=== PATIENT | female | born 1950 | race African-American/Black ===

== ENCOUNTER 2017-02-14 08:03 | Inpatient (IN) | payer OTHER ==
--- NOTE | 2017-02-14 08:14 | PDOC ---
History of Present Illness - General History Source: Patient, Old Records - History of Present Illness Initial Comments: 02/14/17 08:30 The patient is a 67-year-old woman, accompanied by her son, with a significant past medical history of hypertension, hypercholesterolemia, breast Ca (status post chemotherapy and radiation) who presents to the emergency department via EMS with complaints of abdominal pain for the past 2 days. She reports that her abdominal pain started after eating a "bad piece of ham". She states that she had intermittent left sided abdominal pains that spontaneously resolved on its own on Tuesday, but has remained constant ever since last night. She is unable to describe the nature of the pain but notes that her pain is non-radiating and unbearable. She also reports noting associated symptoms of vomiting and nausea since last night. She took Pepto-Bismol to help relieve her pain, for which she states that it helped temporarily. Her last bowel movement was last night and recalls it had a dark appearance, for which she attributes to her Pepto- Bismol intake. She denies fever, chills, diaphoresis, generalized weakness. She denies chest pain, shortness of breath, cough She denies diarrhea, dysuria, hematuria, urinary frequency and urgency, flank pain, vaginal discharge/vaginal bleeding Allergies: Clarithromycin. Penicillin Past Surgical History: Caesarian Section x1. Social History: Never smoked. No EtOh and recreational drug use. Primary Care Physician: Dr. Gordon Salguero [phone] <Tavia Griffith - Last Filed: 02/14/17 15:53> <Angie Mckeon - Last Filed: 02/14/17 15:58> - General Chief Complaint: Pain, Acute Stated Complaint: ABD PAIN Time Seen by Provider: 02/14/17 08:14 Past History <Tavia Griffith - Last Filed: 02/14/17 15:53> - Past Medical History Cancer: Yes (breast) - Psycho/Social/Smoking Cessation Hx Anxiety: No Suicidal Ideation: No Smoking History: Never smoked Number of Cigarettes Smoked Daily: 0 <Angie Mckeon - Last Filed: 02/14/17 15:58> - Past Medical History Allergies/Adverse Reactions: Allergies Allergy/AdvReac Type Severity Reaction Status Date / Time clarithromycin [From Biaxin] Allergy Verified 07/28/14 15:07 Penicillins Allergy Verified 07/28/14 15:07 Home Medications: Ambulatory Orders Diazepam [Valium -] 5 mg PO BID #14 tablet 07/28/14 Naproxen [Naprosyn -] 500 mg PO BID #14 tablet 07/28/14 Atorvastatin Ca [Lipitor] 10 mg PO HS 02/14/17 Hydrochlorothiazide 25 mg PO ASDIR 02/14/17 Metoprolol Succinate [Toprol Xl -] 25 mg PO DAILY 02/14/17 Review of Systems - Review of Systems Able to Perform ROS?: Yes Comments:: 02/14/17 08:31 GENERAL/CONSTITUTIONAL: No fever or chills. No weakness. HEAD, EYES, EARS, NOSE AND THROAT: No change in vision. No ear pain or discharge. No sore throat. CARDIOVASCULAR: No chest pain or shortness of breath. RESPIRATORY: No cough, wheezing, or hemoptysis. GASTROINTESTINAL: Yes: Left sided abdominal pain. Nausea. Vomiting. No diarrhea or constipation. GENITOURINARY: No dysuria, frequency, or change in urination. MUSCULOSKELETAL: No joint or muscle swelling or pain. No neck or back pain. SKIN: No rash NEUROLOGIC: No headache, vertigo, loss of consciousness, or change in strength/ sensation. ENDOCRINE: No increased thirst. No abnormal weight change. HEMATOLOGIC/LYMPHATIC: No anemia, easy bleeding, or history of blood clots. ALLERGIC/IMMUNOLOGIC: No hives or skin allergy. <Tavia Griffith - Last Filed: 02/14/17 15:53> *Physical Exam - Vital Signs Last Vital Signs Temp Pulse Resp BP Pulse Ox 98.8 F 62 20 158/85 99 02/14/17 08:19 02/14/17 08:19 02/14/17 08:19 02/14/17 08:19 02/14/17 08:19 - Physical Exam Comments: 02/14/17 08:31 GENERAL: Awake, alert, and fully oriented. Appears uncomfortable. Actively vomiting. HEAD: No signs of trauma EYES: PERRLA, EOMI, sclera anicteric, conjunctiva clear ENT: Auricles normal inspection, hearing grossly normal, nares patent, oropharynx clear without exudates. Moist mucosa NECK: Normal ROM, supple, no lymphadenopathy, JVD, or masses LUNGS: Breath sounds equal, clear to auscultation bilaterally. No wheezes, and no crackles HEART: Regular rate and rhythm, normal S1 and S2, no murmurs, rubs or gallops ABDOMEN: Soft, diffuse left sided abdominal tenderness to palpation. Normoactive bowel sounds. No guarding, no rebound. No masses EXTREMITIES: Normal range of motion, no edema. No clubbing or cyanosis. No cords, erythema, or tenderness NEUROLOGICAL: Cranial nerves II through XII grossly intact. Normal speech <Tavia Griffith - Last Filed: 02/14/17 15:53> ED Treatment Course - LABORATORY CBC & Chemistry Diagram: 02/14/17 08:30 02/14/17 08:30 - RADIOLOGY Radiograph Interpretation: 02/14/17 10:09 EXAM: RAD/CHEST - PA Interpreted by Dr. Adrián Forbes IMPRESSION: Single AP chest x-ray. The cardiac silhouette is not enlarged. Mildly uncoiled thoracic aorta. The lungs are well aerated. No evidence of a pulmonary infiltrates, atelectasis. No pleural effusion or pneumothorax is seen. Normal pulmonary vasculature. Impression. No evidence of active pulmonary disease. EXAM: RAD/ABDOMEN-KUB FLAT PLATE Interpreted by Dr. Adrián Forbes IMPRESSION: Single AP view. Moderate amount of fecal debris noted throughout the colon. Clinical correlate with history of constipation. IVC filter is noted. Intact pedicles in the visualized vertebral bodies. Disc space narrowing at L4-5 L5-S1 with facet joint arthropathy. Soft tissue calcifications projecting over the sacrum. Impression. No evidence of intestinal obstruction. Fecal debris is noted throughout the colon clinically correlate with history of the constipation. <Tavia Griffith - Last Filed: 02/14/17 15:53> - LABORATORY CBC & Chemistry Diagram: 02/14/17 08:30 02/14/17 08:30 <Angie Mckeon - Last Filed: 02/14/17 15:58> Medical Decision Making - Medical Decision Making 02/14/17 15:[address] Valiente. Immediate response. Case was discussed. <Tavia Griffith - Last Filed: 02/14/17 15:53> - Medical Decision Making 02/14/17 13:18 Pt presents to the ED complaining of diffuse abdominal pain, worse on her left side and nausea. Actively vomiting on my initial exam. Abdomen with diffuse L > R tenderness. Differential included colitis, obstruction., less likely perforation or biliary disease. Labs and abdominal CT show no acute findings, but patient is still vomiting despite zofran. Will treat with reglan and reassess. If able to tolerate PO will discharge home. EKG NSR without signs of ischemia. 02/14/17 15:54 Patient is still not tolerating PO and has pain despite large doses of opiates and antinausea medication. Will admit to Dr. Valiente. <Angie Mckeon - Last Filed: 02/14/17 15:58> *DC/Admit/Observation/Transfer - Attestations Scribe Attestion: 02/14/17 08:32 Documentation prepared by Tavia Griffith, acting as medical voucher clerk for Angie Mckeon MD, /DO. <Tavia Griffith - Last Filed: 02/14/17 15:53> - Discharge Dispostion Admit: Yes Decision to Admit order Date/Time: 02/14/17 15:58 <Angie Mckeon - Last Filed: 02/14/17 15:58> Diagnosis at time of Disposition: Nausea and vomiting Qualifiers: Vomiting Intractability: intractable - Discharge Dispostion Condition at time of disposition: Good - Referrals Referrals: Gordon Salguero [Primary Care Provider] -
[2017-02-14] MEDS ORDERED: morphine CARPU-JECT 4 MG/1 ML DISP.SYRIN ONE (08:26)
[2017-02-14] MEDS ORDERED: ONDANSETRON 4 MG/2 ML VIAL IVPUSH ONE (08:37)
[2017-02-14] MEDS ORDERED: HYDROmorphone HCL CARPU-JECT 1 MG/1 ML DISP.SYRIN ONE ×2 (08:46→09:15)
[2017-02-14] MEDS ORDERED: SODIUM CHLORIDE 1,000 ML IV ONE (08:56)
[2017-02-14] MEDS ORDERED: HYDROmorphone HCL CARPU-JECT 1 MG/1 ML DISP.SYRIN IVPUSH ONE ×2 (08:57→09:14)
[2017-02-14 08:58] LABS: BASOPHIL 1.1 % (0-2.0); EOSINOPHIL 2.5 % (0-4.5); MCH 28.8 pg (25.7-33.7); MCHC 33.1 g/dl (32.0-36.0); MEAN CELL VOLUME 87.1 fl (80-96); MEAN PLT VOLUME 8.9 fl (7.5-11.1); NEUTROPHILS 69.1 % (42.8-82.8); PLATELET COUNT 248 K/MM3 (134-434); WHITE BLOOD COUNT 8.2 K/mm3 (4.0-10.0)
[2017-02-14] MEDS ORDERED: CALCIUM GLUCONATE 10% - 1,000 MG/10 ML VIAL ONE (09:14)
[2017-02-14] MEDS ORDERED: DEXTROSE 50%-WATER 50 ML DISP.SYRIN ONE (09:14)
[2017-02-14 09:24] LABS: ALBUMIN 3.7 g/dl (3.4-5.0); ANION GAP 8 (8-16); BILIRUBIN,TOTAL 0.7 mg/dL (0.2-1.0); CALCIUM 9.1 mg/dL (8.5-10.1); CO2 27 mmol/L (21-32); CREATININE 0.9 mg/dL (0.55-1.02); GLUCOSE,RANDOM 126 mg/dL (74-106); SGOT/AST 19 U/L (15-37); SGPT/ALT 27 U/L (12-78); TOT PROT 6.8 g/dl (6.4-8.2)
[2017-02-14 09:28] LABS: ALK PHOS 70 U/L (45-117); TROPONIN I < 0.02 ng/ml (0.00-0.05)
[2017-02-14] MEDS ORDERED: HYDROmorphone HCL CARPU-JECT 2 MG/1 ML DISP.SYRIN IVPUSH ONE (09:57)
[2017-02-14] MEDS ORDERED: HYDROmorphone HCL CARPU-JECT 2 MG/1 ML DISP.SYRIN ONE ×2 (10:02→10:51)
[2017-02-14] MEDS ORDERED: METOCLOPRAMIDE HCL INJECTION 10 MG/2 ML VIAL IVPUSH ONE (12:35)
--- NOTE | 2017-02-14 12:47 | EKG ---
Test Reason : Blood Pressure : / mmHG Vent. Rate : 064 BPM Atrial Rate : 064 BPM P-R Int : 154 ms QRS Dur : 090 ms QT Int : 456 ms P-R-T Axes : 054 039 022 degrees QTc Int : 470 ms NORMAL SINUS RHYTHM NORMAL ECG NO PREVIOUS ECGS AVAILABLE Confirmed by RUI PETERSON MD ([id number]) on 02/14/2017 12:47:14 PM Referred By: Confirmed By:RUI PETERSON MD
[2017-02-14] MEDS ORDERED: METOCLOPRAMIDE HCL INJECTION 10 MG/2 ML VIAL ONE (12:49)
[2017-02-14 14:40] LABS: URINE APPEARANCE CLEAR; URINE BILIRUBIN NEGATIVE (NEGATIVE); URINE BLOOD 1+ (NEGATIVE); URINE COLOR STRAW; URINE GLUCOSE (UA) 2+ (NEGATIVE); URINE KETONE NEGATIVE (NEGATIVE); URINE LEUK ESTERASE NEGATIVE (NEGATIVE); URINE NITRITE NEGATIVE (NEGATIVE); URINE PROTEIN NEGATIVE (NEGATIVE); URINE UROBILINOGEN NORMAL E.U./dl (0.2-1.0)
[2017-02-14 14:41] LABS: URINE RBC 3 /hpf (0-3); URINE WBC NONE SEEN /hpf (3-5)
--- NOTE | 2017-02-14 20:46 | HP ---
Admitting History and Physical - Primary Care Physician PCP: Brandyn Valiente - Admission History of Present Illness: 67-year-old woman, accompanied by her son, with a significant past medical history of hypertension, hypercholesterolemia, breast Ca (status post chemotherapy and radiation) who presents to the emergency department via EMS with complaints of abdominal pain for the past 2 days. She reports that her abdominal pain started after eating a "bad piece of ham". She states that she had intermittent left sided abdominal pains that spontaneously resolved on its own on Tuesday, but has remained constant ever since last night. She is unable to describe the nature of the pain but notes that her pain is non-radiating and unbearable. She also reports noting associated symptoms of vomiting and nausea since last night. She took Pepto-Bismol to help relieve her pain, for which she states that it helped temporarily. Her last bowel movement was last night and recalls it had a dark appearance, for which she attributes to her Pepto- Bismol int - Past Medical History Cardiovascular: Yes: HTN, Hyperlipdemia ...: No - Smoking History Smoking history: Never smoked Aproximately how many cigarettes per day: 0 - Alcohol/Substance Use Hx Alcohol Use: No Home Medications - Allergies Allergies/Adverse Reactions: Allergies Allergy/AdvReac Type Severity Reaction Status Date / Time clarithromycin [From Biaxin] Allergy Verified 07/28/14 15:07 heparin Allergy Verified 02/15/17 13:18 Penicillins Allergy Verified 07/28/14 15:07 - Home Medications Home Medications: Ambulatory Orders Diazepam [Valium -] 5 mg PO BID #14 tablet 07/28/14 Naproxen [Naprosyn -] 500 mg PO BID #14 tablet 07/28/14 Atorvastatin Ca [Lipitor] 10 mg PO HS 02/14/17 Hydrochlorothiazide 25 mg PO ASDIR 02/14/17 Metoprolol Succinate [Toprol Xl -] 25 mg PO DAILY 02/14/17 Physical Examination Vital Signs: Vital Signs Temperature 98.1 F 02/14/17 20:37 Pulse Rate 70 02/14/17 20:37 Respiratory Rate 18 02/14/17 20:37 Blood Pressure 126/94 02/14/17 20:37 O2 Sat by Pulse Oximetry (%) 95 02/14/17 20:37 Constitutional: Yes: No Distress HENT: Yes: Atraumatic Neck: Yes: Supple Cardiovascular: Yes: Regular Rate and Rhythm Respiratory: Yes: CTA Bilaterally Gastrointestinal: Yes: Normal Bowel Sounds Extremities: Yes: WNL Neurological: Yes: Alert, Oriented Problem List - Problems (1) Nausea & vomiting Assessment/Plan: clear liquid doet oserve prn zofran and pain meds mild iv hydration Code(s): R11.2 - NAUSEA WITH VOMITING, UNSPECIFIED Qualifiers: Vomiting Intractability: intractable (2) Abdominal pain Assessment/Plan: prn garcia meds ct scan no acute problem Code(s): R10.9 - UNSPECIFIED ABDOMINAL PAIN (3) Gastroenteritis Assessment/Plan: ate 2 week old steak resolving GE Code(s): K52.9 - NONINFECTIVE GASTROENTERITIS AND COLITIS, UNSPECIFIED Assessment/Plan Laboratory Tests 02/14/17 02/14/17 02/14/17 08:30 08:30 12:45 WBC 8.2 RBC 4.55 Hgb 13.1 Hct 39.6 MCV 87.1 MCHC 33.1 RDW 15.0 Plt Count 248 MPV 8.9 Neutrophils % 69.1 Lymphocytes % 22.0 Monocytes % 5.3 Eosinophils % 2.5 Basophils % 1.1 Sodium 143 Potassium 3.7 Chloride 108 H Carbon Dioxide 27 Anion Gap 8 BUN 16 Creatinine 0.9 Creat Clearance w eGFR > 60 Random Glucose 126 H Calcium 9.1 Total Bilirubin 0.7 AST 19 ALT 27 Alkaline Phosphatase 70 Creatine Kinase 197 H CK-MB (CK-2) 2.323 Troponin I < 0.02 Total Protein 6.8 Albumin 3.7 Lipase 101 Urine Color Straw Urine Appearance Clear Urine pH 5.0 Ur Specific Randle <= 1.005 Urine Protein Negative Urine Glucose (UA) 2+ H Urine Ketones Negative Urine Blood 1+ H Urine Nitrite Negative Urine Bilirubin Negative Urine Urobilinogen Normal Ur Leukocyte Esterase Negative Urine RBC 3 Urine WBC None seen Ur Epithelial Cells Many Active Medications Generic Name Dose Route Start Last Admin Trade Name Freq PRN Reason Stop Dose Admin Docusate Sodium 100 mg 02/15/17 10:00 02/15/17 11:00 Colace - PO Not Given DAILY DIMPLE Hydromorphone HCl 1 mg 02/15/17 10:30 02/15/17 13:12 Dilaudid Injection - IVPB 1 mg Q3H PRN Administration PAIN Sodium Chloride 1,000 mls @ 75 mls/hr 02/14/17 22:15 02/15/17 13:13 Normal Saline - IV 75 mls/hr ASDIR DIMPLE Administration Metoprolol Succinate 25 mg 02/15/17 10:00 02/15/17 11:00 Toprol Xl - PO Not Given DAILY DIMPLE Ondansetron HCl 4 mg 02/14/17 20:54 02/15/17 07:46 Zofran Injection IVPB 4 mg Q4H PRN Administration NAUSEA AND/OR VOMITING
[2017-02-14] MEDS ORDERED: HYDROmorphone HCL CARPU-JECT 1 MG/1 ML DISP.SYRIN IVPB PRN (20:54)
[2017-02-14] MEDS: SODIUM CHLORIDE 1,000 ML IV SCH (22:17)
[2017-02-14] MEDS: ONDANSETRON 4 MG/2 ML VIAL IVPB PRN (22:19)
[2017-02-15 00:20] VITALS: BMI 34.9
[2017-02-15] MEDS ORDERED: SENNOSIDES 8.6MG TABLET (FP) PO PRN (06:59)
[2017-02-15] MEDS ORDERED: DOCUSATE SODIUM 100 MG CAPSULE (FP) PO ONE (06:59)
[2017-02-15] MEDS ORDERED: POLYETHYLENE GLYCOL 3350 119 GM BTL PO ONE (07:00)
--- NOTE | 2017-02-15 07:02 | HOSP ---
Subjective - Review of Symptoms Events since last encounter: called to evaluate patient for abdominal pain, 05/31 . Dilaudid 1mg given ,did not alleviate pain. General: No: Chills, Night Sweats, Fatigue HEENT: No: Head Aches, Visual Changes Cardiovascular: No: Chest Pain, Palpitations Gastrointestinal: Yes: Nausea, Abdominal Pain, Constipation. No: Vomiting, Diarrhea Genitourinary: No: Dysuria, Frequency Musculoskeletal: No: No Symptoms Neurological: No: Weakness, Numbness Physical Examination Vital Signs: Vital Signs Temperature 99.0 F 02/15/17 06:00 Pulse Rate 71 02/15/17 06:00 Respiratory Rate 20 02/15/17 06:00 Blood Pressure 131/56 02/15/17 06:00 O2 Sat by Pulse Oximetry (%) 96 02/15/17 04:51 Constitutional: Yes: No Distress, Calm HENT: Yes: Atraumatic, Normocephalic Neck: Yes: Supple, Trachea Midline Cardiovascular: Yes: Regular Rate and Rhythm, Murmur, S1, S2 Respiratory: Yes: Regular, CTA Bilaterally. No: Cough Gastrointestinal: Yes: Normal Bowel Sounds, Soft, Abdomen, Obese, Tenderness Hospitalist Encounter Assessment: 67 year old female admitted for abdominal pain. #abdominal pain most likely secondary to constipation -abdominal CT negative for acute pathology -stat abdominal xray -miralax x1 -senns -d/c Dilaudid can contribute to abdominal pain Visit type - Emergency Visit Emergency Visit: Yes ED Registration Date: 02/14/17 Care time: The patient presented to the Emergency Department on the above date and was hospitalized for further evaluation of their emergent condition. - New Patient This patient is new to me today: Yes Date on this admission: 02/15/17 - Critical Care Critical Care patient: No
[2017-02-15] MEDS: ONDANSETRON 4 MG/2 ML VIAL IVPB PRN (07:46)
[2017-02-15 08:52] LABS: BASOPHIL 0.4 % (0-2.0); EOSINOPHIL 0.9 % (0-4.5); MCH 28.7 pg (25.7-33.7); MCHC 32.8 g/dl (32.0-36.0); MEAN CELL VOLUME 87.5 fl (80-96); MEAN PLT VOLUME 9.2 fl (7.5-11.1); NEUTROPHILS 81.7 % (42.8-82.8); PLATELET COUNT 225 K/MM3 (134-434); RDW 15.3 % (11.6-15.6); WHITE BLOOD COUNT 9.8 K/mm3 (4.0-10.0)
[2017-02-15 09:19] LABS: ALBUMIN 3.5 g/dl (3.4-5.0); ANION GAP 8 (8-16); CALCIUM 8.9 mg/dL (8.5-10.1); CO2 27 mmol/L (21-32); CREATININE 0.7 mg/dL (0.55-1.02); GLUCOSE,RANDOM 99 mg/dL (74-106); SGOT/AST 21 U/L (15-37); SGPT/ALT 31 U/L (12-78)
[2017-02-15 09:21] LABS: ALK PHOS 61 U/L (45-117); BILIRUBIN,TOTAL 0.6 mg/dL (0.2-1.0); TOT PROT 6.2 g/dl (6.4-8.2)
[2017-02-15] MEDS: DOCUSATE SODIUM 100 MG CAPSULE (FP) PO SCH (11:00)
[2017-02-15] MEDS: METOPROLOL SUCCINATE 25 MG TAB.SR.24H (FP) PO SCH (11:00)
--- NOTE | 2017-02-15 13:11 | CON.GI ---
Consult Consult Specialty:: GI for Dr. Motta Referred by:: Dr. Valiente Reason for Consultation:: Abdominal pain, nausea, vomiting - History of Present Illness Chief Complaint: I had pain and had nausea, vomiting History of Present Illness: 67 female presenting with new onset of lower abdominal bloating, nausea, vomiting and abdominal pain. She states that she was in her usual state of health up until this last past tuesday evening. She remembers eating a ham and cheese sandwich that evening and began experiencing on and off lower abdominal / left sided pain at 11PM that night. The pain became persistent and she took pepto-bismol to "coat her stomach". She was the awoken by the pain Tuesday morning. She took pepto bismol again and began experiencing nausea and vomiting. She went to the ER yesterday morning. Triage vitals were stable. Blood glucose was mildly elevated on exam. CBC was otherwise normal as was CMP. CT scan of the abdomen and pelvis performed with IV contrast only was performed revealing liver cysts, fatty liver and a fibroid uterus. She was given the name of spring up supervisor Dr. Gordon Dai by her PMD for GI follow-up as an outpatient as she believes that she was told that she had "IBS" . Per her nurse she has been asking for dilaudid IV analgesia. She also believes that she had a colonoscopy 10 years ago that was OK. There is no family history of colorectal cancer or other GI malignancy. She currently is wondering if the patient food has come up to the floor as of yet. 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) - Past Surgical History Past Surgical History: Yes: , Mastectomy (right) Additional Surgical History: Tram flap - Alcohol/Substance Use Hx Alcohol Use: Yes (one drink every 2 weeks) History of Substance Use: reports: None - Smoking History Smoking history: Never smoked Aproximately how many cigarettes per day: 0 - Social History Usual Living Arrangement: Other () ADL: Independent Occupation: Customer Support Place of : [facility] History of Recent Travel: No Home Medications - Allergies Allergies/Adverse Reactions: Allergies Allergy/AdvReac Type Severity Reaction Status Date / Time clarithromycin [From Biaxin] Allergy Verified 07/28/14 15:07 heparin Allergy Verified 02/15/17 13:18 Penicillins Allergy Verified 07/28/14 15:07 - Home Medications Home Medications: Ambulatory Orders Diazepam [Valium -] 5 mg PO BID #14 tablet 07/28/14 Naproxen [Naprosyn -] 500 mg PO BID #14 tablet 07/28/14 Atorvastatin Ca [Lipitor] 10 mg PO HS 02/14/17 Hydrochlorothiazide 25 mg PO ASDIR 02/14/17 Metoprolol Succinate [Toprol Xl -] 25 mg PO DAILY 02/14/17 Family Disease History - Family Disease History Family Disease History: Other: Father ( 70's DM, CVA, P.E), Mother ( age 76: Aneurysm), Brother (1 : ? drug complications 1 alive: DM ), Sister ( Alive: DM ), Son (1 son: obesity) Other Family History: No family history of colorectal cancer or other GI malignancy Review of Systems - Review of Systems Constitutional: reports: Loss of Appetite. denies: Diaphoresis, Fever Cardiovascular: denies: Chest Pain Respiratory: denies: SOB Gastrointestinal: reports: Abdominal Pain, Bloating, Nausea, Vomiting. denies: Diarrhea, Dysphagia, Melena, Rectal Bleeding, Vomiting Blood Physical Exam-GI Vital Signs: Vital Signs Temperature 98.3 F 02/15/17 10:00 Pulse Rate 64 02/15/17 10:00 Respiratory Rate 20 02/15/17 10:00 Blood Pressure 140/58 02/15/17 10:00 O2 Sat by Pulse Oximetry (%) 96 02/15/17 04:51 Constitutional: Yes: Calm Eyes: No: Sclera Icterus Cardiovascular: Yes: Regular Rate and Rhythm. No: Murmur Respiratory: Yes: CTA Bilaterally Gastrointestinal Inspection: Yes: Scars (+ long horizontal pelvic surgical scar , + Periumbilical scar). No: Distention ...Auscultate: Yes: Normoactive Bowel Sounds ...Palpate: No: Hepatomegaly, Splenomegaly, Tenderness ...Percussion: No: Tympanitic ...Rectal Exam: Yes: Other (With Service Liaison Representative present. No external lesions, no masses, trace light brown stool in rectal vault, guaiac negative) Edema: No Labs: CBC, BMP 02/15/17 07:20 02/15/17 07:20 Imaging - Results Cat Scan: Report Reviewed (liver cysts, fatty liver, firbroid uterus, no acute pathology otherwise), Image Reviewed Problem List - Problems (1) Nausea & vomiting Assessment/Plan: Currently no further N/V and would like to eat No focal findings on physical exam currently ? resolved Acute gastroenteritis Monitor for now on clear liquids Code(s): R11.2 - NAUSEA WITH VOMITING, UNSPECIFIED Qualifiers: Vomiting Intractability: intractable (2) Abdominal pain Assessment/Plan: Currently cannot reproduce pain on exam, guaiac negative on MARY BETH Advance to clears If pain persists then repeat CT scan with PO contrast to further evaluate bowel , check amylase/lipase If continues to improve will need outpatient follow-up of current hospitalization as well as for colorectal cancer screening purposes. She already has contact information for Dr. Gordon Dai or alternativly can follow-up with Dr. Motta as outpatient as well. Code(s): R10.9 - UNSPECIFIED ABDOMINAL PAIN (3) Constipation Assessment/Plan: Likely precipitated by peptobismol compounded by dilaudid MiraLAX 17g daily Code(s): K59.00 - CONSTIPATION, UNSPECIFIED (4) Uterine fibroid Assessment/Plan: Needs f/u w/ gear shaver set up operator regarding this Code(s): D25.9 - LEIOMYOMA OF UTERUS, UNSPECIFIED
[2017-02-15] MEDS: HYDROmorphone HCL CARPU-JECT 1 MG/1 ML DISP.SYRIN IVPB PRN (13:12)
[2017-02-15] MEDS: SODIUM CHLORIDE 1,000 ML IV SCH ×2 (13:13→22:31)
--- NOTE | 2017-02-15 16:10 | PN ---
Progress Note, Physician - Current Medication List Current Medications: Active Medications Docusate Sodium (Colace -) 100 mg PO DAILY [facility] Last Admin: 02/15/17 11:00 Dose: Not Given Hydromorphone HCl (Dilaudid Injection -) 1 mg IVPB Q3H PRN PRN Reason: PAIN Last Admin: 02/15/17 13:12 Dose: 1 mg Sodium Chloride (Normal Saline -) 1,000 mls @ 75 mls/hr IV ASDIR [facility] Last Admin: 02/15/17 13:13 Dose: 75 mls/hr Metoprolol Succinate (Toprol Xl -) 25 mg PO DAILY [facility] Last Admin: 02/15/17 11:00 Dose: Not Given Ondansetron HCl (Zofran Injection) 4 mg IVPB Q4H PRN PRN Reason: NAUSEA AND/OR VOMITING Last Admin: 02/15/17 07:46 Dose: 4 mg - Objective Vital Signs: Vital Signs Temperature 98.9 F 02/15/17 14:00 Pulse Rate 64 02/15/17 10:00 Respiratory Rate 20 02/15/17 10:00 Blood Pressure 140/58 02/15/17 10:00 O2 Sat by Pulse Oximetry (%) 96 02/15/17 04:51 Constitutional: Yes: No Distress HENT: Yes: Atraumatic Neck: Yes: Supple Cardiovascular: Yes: Regular Rate and Rhythm Respiratory: Yes: CTA Bilaterally Gastrointestinal: Yes: Normal Bowel Sounds Extremities: Yes: WNL Neurological: Yes: Alert, Oriented Labs: CBC, BMP 02/15/17 07:20 02/15/17 07:20 Problem List - Problems (1) Nausea & vomiting Assessment/Plan: advance diet as tolerated prn zofran and pain meds mild iv hydration Code(s): R11.2 - NAUSEA WITH VOMITING, UNSPECIFIED Qualifiers: Vomiting Intractability: intractable (2) Abdominal pain Assessment/Plan: prn garcia meds ct scan no acute problem Code(s): R10.9 - UNSPECIFIED ABDOMINAL PAIN (3) Gastroenteritis Assessment/Plan: ate 2 week old steak resolving GE gi eval Code(s): K52.9 - NONINFECTIVE GASTROENTERITIS AND COLITIS, UNSPECIFIED
[2017-02-16] MEDS: DOCUSATE SODIUM 100 MG CAPSULE (FP) PO SCH (09:58)
[2017-02-16] MEDS: METOPROLOL SUCCINATE 25 MG TAB.SR.24H (FP) PO SCH (09:58)
--- NOTE | 2017-02-16 18:15 | PN ---
Progress Note, Physician History of Present Illness: c/o heaviness and discomfort in belly - Current Medication List Current Medications: Active Medications Docusate Sodium (Colace -) 100 mg PO DAILY [facility] Last Admin: 02/16/17 09:58 Dose: 100 mg Hydromorphone HCl (Dilaudid Injection -) 1 mg IVPB Q3H PRN PRN Reason: PAIN Last Admin: 02/15/17 13:12 Dose: 1 mg Sodium Chloride (Normal Saline -) 1,000 mls @ 75 mls/hr IV ASDIR [facility] Last Admin: 02/15/17 22:31 Dose: Not Given Metoprolol Succinate (Toprol Xl -) 25 mg PO DAILY [facility] Last Admin: 02/16/17 09:58 Dose: 25 mg Ondansetron HCl (Zofran Injection) 4 mg IVPB Q4H PRN PRN Reason: NAUSEA AND/OR VOMITING Last Admin: 02/15/17 07:46 Dose: 4 mg - Objective Vital Signs: Vital Signs Temperature 98.9 F 02/16/17 14:58 Pulse Rate 66 02/16/17 14:58 Respiratory Rate 18 02/16/17 14:58 Blood Pressure 117/64 02/16/17 14:58 O2 Sat by Pulse Oximetry (%) 96 02/16/17 04:00 Constitutional: Yes: No Distress HENT: Yes: Atraumatic Neck: Yes: Supple Cardiovascular: Yes: Regular Rate and Rhythm Respiratory: Yes: CTA Bilaterally Gastrointestinal: Yes: Normal Bowel Sounds Extremities: Yes: WNL Neurological: Yes: Alert, Oriented Labs: CBC, BMP 02/15/17 07:20 02/15/17 07:20 Problem List - Problems (1) Nausea & vomiting Assessment/Plan: resolved advance diet as tolerated prn zofran and pain meds Code(s): R11.2 - NAUSEA WITH VOMITING, UNSPECIFIED Qualifiers: Vomiting Intractability: intractable (2) Abdominal pain Assessment/Plan: prn pain meds ct scan no acute problem some lower abdomen discomfort Code(s): R10.9 - UNSPECIFIED ABDOMINAL PAIN (3) Gastroenteritis Assessment/Plan: resolved Code(s): K52.9 - NONINFECTIVE GASTROENTERITIS AND COLITIS, UNSPECIFIED Assessment/Plan advance diet to regular if tolerating and cleared by gi can be dc
[2017-02-16] MEDS: HYDROmorphone HCL CARPU-JECT 1 MG/1 ML DISP.SYRIN IVPB PRN (21:03)
[2017-02-16] MEDS: ONDANSETRON 4 MG/2 ML VIAL IVPB PRN (21:59)
[2017-02-16] MEDS ORDERED: BISACODYL 10 MG SUPP.RECT RC ONE (23:15)
[2017-02-16] MEDS ORDERED: MAG HYDROX/AL HYDROX/SIMETH 30 ML UNIT-DOSE CUP PO ONE (23:15)
[2017-02-17] MEDS: HYDROmorphone HCL CARPU-JECT 1 MG/1 ML DISP.SYRIN IVPB PRN (02:14)
[2017-02-17] MEDS: SODIUM CHLORIDE 1,000 ML IV SCH (02:14)
--- NOTE | 2017-02-17 09:09 | PN ---
GI Progress Note Subjective: Vomiting occurred last night along with abdominal bloating. She complains primarily of left flank and left abdominal pain that radiates to the back. The pain seems to get worse after she urinates and occurred after eating solids yesterday evening. She denies urinary symptoms. She has had scant bowel movements since being here. She points towrds her pelvis and describes "feeling heaviness for months" - Objective Vital Signs: Vital Signs Temperature 99.6 F 02/17/17 06:00 Pulse Rate 64 02/17/17 06:00 Respiratory Rate 20 02/17/17 06:00 Blood Pressure 131/76 02/17/17 06:00 O2 Sat by Pulse Oximetry (%) 96 02/17/17 04:00 Constitutional: Calm Eyes: No: Sclera Icterus Cardiovascular: Yes: Regular Rate and Rhythm Respiratory: Yes: CTA Bilaterally ...Auscultate: Yes: Normoactive Bowel Sounds ...Palpate: Yes: Tenderness (mild TTP pelvis, LLQ, left abdomen. + TTP along left paravertebrals) Edema: No Neurological: Yes: Alert Labs: CBC, BMP 02/15/17 07:20 02/15/17 07:20 Laboratory Tests 02/16/17 02/16/17 07:35 07:35 Total Amylase 57 Lipase 112 Problem List - Problems (1) Nausea & vomiting Assessment/Plan: Recurred: Minimize opiate analgesia Repeat CT scan as mentioned in previous note with PO contrast to further assess bowel and reassess left kidney given left sided back pain as well. UA was contaminated on admission but did contain blood and RBC's. ? pathology. Repeat UA and will need follow-up per PMD Repeat labs today including CRP Clear liquids Code(s): R11.2 - NAUSEA WITH VOMITING, UNSPECIFIED Qualifiers: Vomiting Intractability: intractable (2) Abdominal pain Assessment/Plan: See above Code(s): R10.9 - UNSPECIFIED ABDOMINAL PAIN (3) Constipation Assessment/Plan: Await CT scan results, then MiraLAX 17g PO BID Code(s): K59.00 - CONSTIPATION, UNSPECIFIED (4) Uterine fibroid Assessment/Plan: ? 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
[2017-02-17 09:49] LABS: BASOPHIL 1.2 % (0-2.0); EOSINOPHIL 2.5 % (0-4.5); MCH 28.6 pg (25.7-33.7); MCHC 32.6 g/dl (32.0-36.0); MEAN CELL VOLUME 87.7 fl (80-96); MEAN PLT VOLUME 9.1 fl (7.5-11.1); NEUTROPHILS 66.5 % (42.8-82.8); PLATELET COUNT 207 K/MM3 (134-434); RDW 15.5 % (11.6-15.6); WHITE BLOOD COUNT 7.1 K/mm3 (4.0-10.0)
[2017-02-17] MEDS: METOPROLOL SUCCINATE 25 MG TAB.SR.24H (FP) PO SCH (10:09)
[2017-02-17] MEDS: DOCUSATE SODIUM 100 MG CAPSULE (FP) PO SCH (10:09)
[2017-02-17 10:13] LABS: ALBUMIN 3.4 g/dl (3.4-5.0); ANION GAP 7 (8-16); CALCIUM 8.6 mg/dL (8.5-10.1); CO2 28 mmol/L (21-32); CREATININE 0.7 mg/dL (0.55-1.02); GLUCOSE,RANDOM 107 mg/dL (74-106); SGPT/ALT 43 U/L (12-78)
[2017-02-17 10:15] LABS: ALK PHOS 61 U/L (45-117); BILIRUBIN,TOTAL 0.4 mg/dL (0.2-1.0); TOT PROT 6.2 g/dl (6.4-8.2)
[2017-02-17 10:17] LABS: SGOT/AST 29 U/L (15-37)
[2017-02-17 10:22] LABS: C-REACTIVE PROTEIN 0.6 MG/DL (0.00-0.3)
[2017-02-17 11:24] LABS: URINE APPEARANCE CLEAR; URINE BILIRUBIN NEGATIVE (NEGATIVE); URINE COLOR LTYELLOW; URINE GLUCOSE (UA) NEGATIVE (NEGATIVE); URINE KETONE NEGATIVE (NEGATIVE); URINE LEUK ESTERASE NEGATIVE (NEGATIVE); URINE NITRITE NEGATIVE (NEGATIVE); URINE PROTEIN NEGATIVE (NEGATIVE); URINE UROBILINOGEN 2.0 E.U/dl E.U./dl (0.2-1.0)
[2017-02-17 11:34] LABS: URINE BLOOD 2+ (NEGATIVE)
[2017-02-17 11:37] LABS: URINE BACTERIA RARE /hpf (NONE SEEN); URINE MUCUS RARE; URINE RBC 7 /hpf (0-3); URINE WBC 1 /hpf (3-5)
--- NOTE | 2017-02-17 17:38 | PN ---
Progress Note, Physician - Current Medication List Current Medications: Active Medications Docusate Sodium (Colace -) 100 mg PO DAILY [facility] Last Admin: 02/17/17 10:09 Dose: 100 mg Hydromorphone HCl (Dilaudid Injection -) 1 mg IVPB Q3H PRN PRN Reason: PAIN Last Admin: 02/17/17 02:14 Dose: 1 mg Sodium Chloride (Normal Saline -) 1,000 mls @ 75 mls/hr IV ASDIR [facility] Last Admin: 02/17/17 02:14 Dose: 75 mls/hr Metoprolol Succinate (Toprol Xl -) 25 mg PO DAILY [facility] Last Admin: 02/17/17 10:09 Dose: 25 mg Ondansetron HCl (Zofran Injection) 4 mg IVPB Q4H PRN PRN Reason: NAUSEA AND/OR VOMITING Last Admin: 02/16/17 21:59 Dose: 4 mg - Objective Vital Signs: Vital Signs Temperature 99.2 F 02/17/17 14:23 Pulse Rate 66 02/17/17 17:12 Respiratory Rate 18 02/17/17 17:12 Blood Pressure 127/84 02/17/17 17:12 O2 Sat by Pulse Oximetry (%) 96 02/17/17 04:00 Constitutional: Yes: No Distress HENT: Yes: Atraumatic Neck: Yes: Supple Cardiovascular: Yes: Regular Rate and Rhythm Respiratory: Yes: CTA Bilaterally Gastrointestinal: Yes: Normal Bowel Sounds Extremities: Yes: WNL Neurological: Yes: Alert, Oriented Problem List - Problems (1) Nausea & vomiting Assessment/Plan: mild soft diet prn zofran and pain meds Code(s): R11.2 - NAUSEA WITH VOMITING, UNSPECIFIED Qualifiers: Vomiting Intractability: intractable (2) Abdominal pain Assessment/Plan: prn pain meds ct scan 3 mm renal stone some lower abdomen discomfort urology consult Code(s): R10.9 - UNSPECIFIED ABDOMINAL PAIN (3) Gastroenteritis Assessment/Plan: resolved Code(s): K52.9 - NONINFECTIVE GASTROENTERITIS AND COLITIS, UNSPECIFIED (4) Nephrolithiasis Assessment/Plan: ivf prn pain meds Code(s): N20.0 - CALCULUS OF KIDNEY
[2017-02-17] MEDS: LEVOFLOXACIN 500 MG IVPB 100 ML IVPB SCH (21:58)
--- NOTE | 2017-02-18 09:33 | PN ---
GI Progress Note Subjective: 3mm left ureteral stone with partiel obstruction and mild hydronephrosis noted on yesterday's repeat CT scan It also revealed an IVC filter. 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 She was on A/C, had IVC filter placed at that time and followed up with a cryolite recovery operator. complains of continued migratory pain on the left side of abdomen and pelvis radiating to her back Had a BM yesterday - Objective Vital Signs: Vital Signs Temperature 98.2 F 02/18/17 05:32 Pulse Rate 64 02/18/17 05:32 Respiratory Rate 20 02/18/17 05:32 Blood Pressure 134/72 02/18/17 05:32 O2 Sat by Pulse Oximetry (%) 96 02/18/17 04:00 Constitutional: Calm Cardiovascular: Yes: Regular Rate and Rhythm Respiratory: Yes: CTA Bilaterally ...Auscultate: Yes: Normoactive Bowel Sounds ...Palpate: No: Tenderness Edema: No Neurological: Yes: Alert, Oriented Labs: CBC, BMP 02/17/17 09:30 02/17/17 09:30 Hepatic Panel Total Bilirubin 0.4 mg/dL (0.2-1.0) D 02/17/17 09:30 AST 29 U/L (15-37) D 02/17/17 09:30 ALT 43 U/L (12-78) D 02/17/17 09:30 Alkaline Phosphatase 61 U/L (45-117) 02/17/17 09:30 Albumin 3.4 g/dl (3.4-5.0) 02/17/17 09:30 - ....Imaging Cat Scan: Report Reviewed, Image Reviewed Problem List - Problems (1) Abdominal pain Assessment/Plan: The left sided flank/pelvis pain likely secondary to the 3mm partially obstructing ureteral stone She has been evaluated by urology Code(s): R10.9 - UNSPECIFIED ABDOMINAL PAIN (2) Nausea & vomiting Assessment/Plan: resolved Code(s): R11.2 - NAUSEA WITH VOMITING, UNSPECIFIED Qualifiers: Vomiting Intractability: intractable (3) Constipation Assessment/Plan: Had BM yesterday MiraLAX 17g daily particularly while receiving opiate analgesia Code(s): K59.00 - CONSTIPATION, UNSPECIFIED
--- NOTE | 2017-02-18 09:35 | CON.GU ---
Consult Consult Specialty:: urology Referred by:: Rocco Reason for Consultation:: 3mm ureteral stone - History of Present Illness Chief Complaint: renal colic History of Present Illness: 67 year old female with left sided renal colic. CT shows a 3mm ureteral stone with hydro. patient is feeling a little better this morning. No evidence of sepsis. This is her first stone but she has a strong family history - History Source History Provided By: Patient - Past Medical History Cardio/Vascular: Yes: HTN, Hyperlipdemia Renal/: Yes: Renal Calculi. No: Renal Inusuff, Cancer, Hematuria ...: No - Past Surgical History Past Surgical History: Yes: , Mastectomy (right) Additional Surgical History: Tram flap - Alcohol/Substance Use Hx Alcohol Use: No History of Substance Use: reports: None - Smoking History Smoking history: Never smoked Aproximately how many cigarettes per day: 0 - Social History Usual Living Arrangement: Other () ADL: Independent Occupation: Customer Support History of Recent Travel: No Home Medications - Allergies Allergies/Adverse Reactions: Allergies Allergy/AdvReac Type Severity Reaction Status Date / Time clarithromycin [From Biaxin] Allergy Verified 07/28/14 15:07 heparin Allergy Verified 02/15/17 13:18 Penicillins Allergy Verified 07/28/14 15:07 - Home Medications Home Medications: Ambulatory Orders Diazepam [Valium -] 5 mg PO BID #14 tablet 07/28/14 Naproxen [Naprosyn -] 500 mg PO BID #14 tablet 07/28/14 Atorvastatin Ca [Lipitor] 10 mg PO HS 02/14/17 Hydrochlorothiazide 25 mg PO ASDIR 02/14/17 Metoprolol Succinate [Toprol Xl -] 25 mg PO DAILY 02/14/17 Family Disease History - Family Disease History Family Disease History: Other: Father ( 70's DM, CVA, P.E), Mother ( age 76: Aneurysm), Brother (1 : ? drug complications 1 alive: DM ), Sister ( Alive: DM ), Son (1 son: obesity) Other Family History: No family history of colorectal cancer or other GI malignancy Review of Systems - Review of Systems Constitutional: denies: Chills, Fever Genitourinary: reports: Flank Pain, Frequency. denies: Burning, Hematuria Physical Exam- Vital Signs: Vital Signs Temperature 98.2 F 06/30/17 05:32 Pulse Rate 64 02/18/17 05:32 Respiratory Rate 20 02/18/17 05:32 Blood Pressure 134/72 02/18/17 05:32 O2 Sat by Pulse Oximetry (%) 96 02/18/17 04:00 Renal/: No: Bladder Distention, CVA Tenderness - Left, CVA Tenderness - Right , Perez Present, Hematuria Imaging - Results Cat Scan: Report Reviewed Assessment/Plan left ureteral calculus. Size and position suggest a high likelihood of passage with medical expulsive therapy. will follow
[2017-02-18] MEDS ORDERED: TAMSULOSIN HCL 0.4 MG CAP.ER.24H (FP) PO STA (09:38)
[2017-02-18] MEDS: LEVOFLOXACIN 500 MG IVPB 100 ML IVPB SCH (09:58)
[2017-02-18] MEDS: POLYETHYLENE GLYCOL 3350 119 GM BTL PO SCH (09:58)
[2017-02-18] MEDS: METOPROLOL SUCCINATE 25 MG TAB.SR.24H (FP) PO SCH (09:59)
[2017-02-18] MEDS: HYDROmorphone HCL CARPU-JECT 1 MG/1 ML DISP.SYRIN IVPB PRN (10:06)
[2017-02-18] MEDS ORDERED: HYDROmorphone HCL CARPU-JECT 1 MG/1 ML DISP.SYRIN IVPB PRN (15:22)
[2017-02-18] MEDS: SODIUM CHLORIDE 1,000 ML IV SCH (15:33)
--- NOTE | 2017-02-18 21:07 | PN ---
Progress Note, Physician History of Present Illness: had pain earlier - Current Medication List Current Medications: Active Medications Hydromorphone HCl (Dilaudid Injection -) 1 mg IVPB Q3H PRN PRN Reason: PAIN Last Admin: 02/18/17 15:30 Dose: 1 mg Sodium Chloride (Normal Saline -) 1,000 mls @ 75 mls/hr IV ASDIR [facility] Last Admin: 02/18/17 15:33 Dose: 75 mls/hr Levofloxacin (Levaquin 500 Mg Premixed Ivpb -) 100 mls @ 100 mls/hr IVPB DAILY [facility] Last Admin: 02/18/17 09:58 Dose: 100 mls/hr Metoprolol Succinate (Toprol Xl -) 25 mg PO DAILY [facility] Last Admin: 02/18/17 09:59 Dose: 25 mg Ondansetron HCl (Zofran Injection) 4 mg IVPB Q4H PRN PRN Reason: NAUSEA AND/OR VOMITING Last Admin: 02/16/17 21:59 Dose: 4 mg Polyethylene Glycol (Miralax (For Daily Use) -) 17 gm PO DAILY [facility] Last Admin: 02/18/17 09:58 Dose: 17 gm Tamsulosin HCl (Flomax -) 0.4 mg PO DAILY@0830 [facility] - Objective Vital Signs: Vital Signs Temperature 98.8 F 02/18/17 18:06 Pulse Rate 58 L 02/18/17 18:06 Respiratory Rate 20 02/18/17 18:06 Blood Pressure 140/108 02/18/17 18:06 O2 Sat by Pulse Oximetry (%) 94 L 02/18/17 20:51 Constitutional: Yes: No Distress HENT: Yes: Atraumatic Neck: Yes: Supple Cardiovascular: Yes: Regular Rate and Rhythm Respiratory: Yes: CTA Bilaterally Gastrointestinal: Yes: Normal Bowel Sounds Extremities: Yes: WNL Neurological: Yes: Alert, Oriented Problem List - Problems (1) Nausea & vomiting Assessment/Plan: mild soft diet prn zofran and pain meds Code(s): R11.2 - NAUSEA WITH VOMITING, UNSPECIFIED Qualifiers: Vomiting Intractability: intractable (2) Abdominal pain Assessment/Plan: prn pain meds ct scan 3 mm ureteral stone some lower abdomen discomfort urology consult...done Code(s): R10.9 - UNSPECIFIED ABDOMINAL PAIN (3) Gastroenteritis Assessment/Plan: resolved Code(s): K52.9 - NONINFECTIVE GASTROENTERITIS AND COLITIS, UNSPECIFIED (4) Nephrolithiasis Assessment/Plan: ivf prn pain meds Code(s): N20.0 - CALCULUS OF KIDNEY
[2017-02-19] MEDS: SODIUM CHLORIDE 1,000 ML IV SCH (04:36)
[2017-02-19] MEDS: TAMSULOSIN HCL 0.4 MG CAP.ER.24H (FP) PO SCH (08:05)
[2017-02-19] MEDS: METOPROLOL SUCCINATE 25 MG TAB.SR.24H (FP) PO SCH (10:21)
[2017-02-19] MEDS: LEVOFLOXACIN 500 MG IVPB 100 ML IVPB SCH (10:21)
[2017-02-19] MEDS: POLYETHYLENE GLYCOL 3350 119 GM BTL PO SCH (10:22)
[2017-02-19] MEDS ORDERED: MAG HYDROX/AL HYDROX/SIMETH 30 ML UNIT-DOSE CUP PO PRN (17:15)
--- NOTE | 2017-02-19 20:17 | PN ---
Progress Note, Physician History of Present Illness: NO PAIN FEELS BLOATED - Current Medication List Current Medications: Active Medications Al Hydroxide/Mg Hydroxide (Mylanta Oral Suspension -) 30 ml PO Q6H PRN PRN Reason: INDIGESTION Last Admin: 02/19/17 17:25 Dose: 30 ml Hydromorphone HCl (Dilaudid Injection -) 1 mg IVPB Q3H PRN PRN Reason: PAIN Last Admin: 02/18/17 15:30 Dose: 1 mg Sodium Chloride (Normal Saline -) 1,000 mls @ 75 mls/hr IV ASDIR [facility] Last Admin: 02/19/17 04:36 Dose: 75 mls/hr Levofloxacin (Levaquin 500 Mg Premixed Ivpb -) 100 mls @ 100 mls/hr IVPB DAILY [facility] Last Admin: 02/19/17 10:21 Dose: 100 mls/hr Metoprolol Succinate (Toprol Xl -) 25 mg PO DAILY [facility] Last Admin: 02/19/17 10:21 Dose: 25 mg Ondansetron HCl (Zofran Injection) 4 mg IVPB Q4H PRN PRN Reason: NAUSEA AND/OR VOMITING Last Admin: 02/16/17 21:59 Dose: 4 mg Polyethylene Glycol (Miralax (For Daily Use) -) 17 gm PO DAILY [facility] Last Admin: 02/19/17 10:22 Dose: 17 gm Tamsulosin HCl (Flomax -) 0.4 mg PO DAILY@0830 [facility] Last Admin: 02/19/17 08:05 Dose: 0.4 mg - Objective Vital Signs: Vital Signs Temperature 98.1 F 02/19/17 15:50 Pulse Rate 68 02/19/17 15:50 Respiratory Rate 20 02/19/17 15:50 Blood Pressure 127/68 02/19/17 15:50 O2 Sat by Pulse Oximetry (%) 94 L 02/19/17 09:00 Constitutional: Yes: No Distress HENT: Yes: Atraumatic Neck: Yes: Supple Cardiovascular: Yes: Regular Rate and Rhythm Respiratory: Yes: CTA Bilaterally Gastrointestinal: Yes: Normal Bowel Sounds Extremities: Yes: WNL Neurological: Yes: Alert, Oriented Problem List - Problems (1) Nausea & vomiting Assessment/Plan: RESOLVED soft diet Code(s): R11.2 - NAUSEA WITH VOMITING, UNSPECIFIED Qualifiers: Vomiting Intractability: intractable (2) Abdominal pain Assessment/Plan: RESOLVED TOLERATING DIET Code(s): R10.9 - UNSPECIFIED ABDOMINAL PAIN (3) Gastroenteritis Assessment/Plan: resolved Code(s): K52.9 - NONINFECTIVE GASTROENTERITIS AND COLITIS, UNSPECIFIED (4) Nephrolithiasis Assessment/Plan: ivf prn pain meds PO FLOMAX Code(s): N20.0 - CALCULUS OF KIDNEY
[2017-02-20] MEDS: TAMSULOSIN HCL 0.4 MG CAP.ER.24H (FP) PO SCH (09:10)
[2017-02-20] MEDS: METOPROLOL SUCCINATE 25 MG TAB.SR.24H (FP) PO SCH (09:10)
[2017-02-20] MEDS: LEVOFLOXACIN 500 MG IVPB 100 ML IVPB SCH (09:10)
[2017-02-20] MEDS: POLYETHYLENE GLYCOL 3350 119 GM BTL PO SCH (09:12)
--- NOTE | 2017-02-20 21:05 | PN ---
Progress Note, Physician History of Present Illness: NO PAIN - Current Medication List Current Medications: Active Medications Al Hydroxide/Mg Hydroxide (Mylanta Oral Suspension -) 30 ml PO Q6H PRN PRN Reason: INDIGESTION Last Admin: 02/19/17 17:25 Dose: 30 ml Hydromorphone HCl (Dilaudid Injection -) 1 mg IVPB Q3H PRN PRN Reason: PAIN Last Admin: 02/18/17 15:30 Dose: 1 mg Sodium Chloride (Normal Saline -) 1,000 mls @ 75 mls/hr IV ASDIR [facility] Last Admin: 02/19/17 04:36 Dose: 75 mls/hr Metoprolol Succinate (Toprol Xl -) 25 mg PO DAILY [facility] Last Admin: 02/20/17 09:10 Dose: 25 mg Ondansetron HCl (Zofran Injection) 4 mg IVPB Q4H PRN PRN Reason: NAUSEA AND/OR VOMITING Last Admin: 02/16/17 21:59 Dose: 4 mg Polyethylene Glycol (Miralax (For Daily Use) -) 17 gm PO DAILY [facility] Last Admin: 02/20/17 09:12 Dose: Not Given Tamsulosin HCl (Flomax -) 0.4 mg PO DAILY@0830 [facility] Last Admin: 02/20/17 09:10 Dose: 0.4 mg - Objective Vital Signs: Vital Signs Temperature 98.4 F 02/20/17 16:21 Pulse Rate 70 02/20/17 16:21 Respiratory Rate 18 02/20/17 16:21 Blood Pressure 133/87 02/20/17 16:21 O2 Sat by Pulse Oximetry (%) 95 02/20/17 09:00 Constitutional: Yes: No Distress HENT: Yes: Atraumatic Neck: Yes: Supple Cardiovascular: Yes: Regular Rate and Rhythm Respiratory: Yes: CTA Bilaterally Gastrointestinal: Yes: Normal Bowel Sounds Extremities: Yes: WNL Neurological: Yes: Alert, Oriented Problem List - Problems (1) Nausea & vomiting Assessment/Plan: RESOLVED Code(s): R11.2 - NAUSEA WITH VOMITING, UNSPECIFIED Qualifiers: Vomiting Intractability: intractable (2) Abdominal pain Assessment/Plan: RESOLVED TOLERATING DIET Code(s): R10.9 - UNSPECIFIED ABDOMINAL PAIN (3) Gastroenteritis Assessment/Plan: resolved Code(s): K52.9 - NONINFECTIVE GASTROENTERITIS AND COLITIS, UNSPECIFIED (4) Nephrolithiasis Assessment/Plan: ivf Code(s): N20.0 - CALCULUS OF KIDNEY Assessment/Plan PLAN CLINICALLY STABLE SOMETIMES FEELS BLOATED NO PAIN TOLERATING DIET DC HOME IN AM IF STABLE PLENTY OF PO FLUIDS' FU UROLOGY/PMD IN NEXT FEW DAYS IF PAIN RECURS COME BACK TO ER
[2017-02-21 05:20] VITALS: TEMP 98.2
[2017-02-21 08:50] VITALS: BP 132/68; PULSE 78
[2017-02-21] MEDS: TAMSULOSIN HCL 0.4 MG CAP.ER.24H (FP) PO SCH (09:18)
[2017-02-21] MEDS: METOPROLOL SUCCINATE 25 MG TAB.SR.24H (FP) PO SCH (09:19)
[2017-02-21] MEDS: POLYETHYLENE GLYCOL 3350 119 GM BTL PO SCH (09:19)
--- NOTE | 2017-02-21 15:20 | DS ---
Physical Examination Vital Signs: Vital Signs Temperature 98.2 F 02/21/17 08:49 Pulse Rate 78 02/21/17 08:49 Respiratory Rate 16 02/21/17 09:00 Blood Pressure 132/68 02/21/17 08:49 O2 Sat by Pulse Oximetry (%) 95 02/21/17 09:00 Discharge Summary Reason For Visit: NAUSEA AND VOMITING Current Active Problems Abdominal pain (Acute) Constipation (Acute) Gastroenteritis (Acute) Nausea & vomiting (Acute) Nephrolithiasis (Acute) Uterine fibroid (Acute) - Instructions Diet, Activity, Other Instructions: ENCOURAGE PO FLUIDS IF PAIN COMES BACK AND PT CANNOT TOLERATE COME BACK TO ER SEE YOUR PMD AND UROLOGIST IN NEXT FEW DAYS Referrals: Nii Martinez MD [Staff Physician] - Gordon Salguero [Primary Care Provider] - Jaret Motta MD [Staff Physician] - Disposition: HOME - Home Medications Comprehensive Discharge Medication List: Ambulatory Orders Diazepam [Valium] 5 mg PO BID #14 tablet 07/28/14 Naproxen [Naprosyn -] 500 mg PO BID #14 tablet 07/28/14 Atorvastatin Ca [Lipitor] 10 mg PO HS 02/14/17 Hydrochlorothiazide 25 mg PO ASDIR 02/14/17 Metoprolol Succinate [Toprol XL -] 25 mg PO DAILY 02/14/17 Tamsulosin HCl [Flomax -] 0.4 mg PO DAILY@0830 #14 tab 02/18/17 [place] home
== END 2017-02-21 10:51 | disposition home or self-care (01) | DRG 694 ==
LOC: JER 08:03 → JERBED 15:58 → J6S 21:33 → OBSVTOIN 02-17 12:58 → J6S 02-18 11:40
PROVIDERS: ADMIT Internal Medicine; ATTEND Internal Medicine
DX: N13.2 Hydronephrosis with renal and ureteral calculous obstruction (principal); K52.9 Noninfective gastroenteritis and colitis, unspecified; D25.9 Leiomyoma of uterus, unspecified; I10 Essential (primary) hypertension; K59.00 Constipation, unspecified; Z85.3 Personal history of malignant neoplasm of breast; Z88.0 Allergy status to penicillin; E78.00 Pure hypercholesterolemia, unspecified
CPT/HCPCS: 36415; 71010-TC; 74000-TC; 74020-TC; 74176-TC; 74177-TC; 80053; 81003; 81015; 82150; 82550; 82553; 83690; 84484; 85025; 86140; 87086; 93005; 93010; 99285-25; G0378